=== PATIENT | female | born 1990 | race Hispanic/Latino ===

== ENCOUNTER 2018-01-06 00:02 | Emergency (ER) | payer BC ==
[~2018-01-06] VITALS: Ht 157.5 cm; Wt 118.4 kg
== END 2018-01-06 02:03 | disposition home or self-care (01) ==
LOC: ER 00:02
DX: H92.01 Otalgia, right ear (principal); J02.9 Acute pharyngitis, unspecified
CPT/HCPCS: 83518; 87070; 99282

== ENCOUNTER 2020-10-07 00:11 | Emergency (ER) | payer BC ==
[~2020-10-07] VITALS: Ht 157.5 cm; Wt 111.1 kg
[2020-10-07] MEDS ORDERED: IBUPROFEN IB200 MG PO (00:45)
[2020-10-07] MEDS ORDERED: ACETAMINOPHEN500 MG PO (00:45)
[2020-10-07] MEDS ORDERED: GABAPENTIN300 MG PO (00:45)
[2020-10-07] MEDS ORDERED: ULTRAM 50MG50 MG PO (00:45)
[2020-10-07] MEDS ORDERED: PREDNISONE 20 MG TAB PO ONE (01:00)
[2020-10-07] MEDS ORDERED: HYDROCODONE/APAP 5MG-325MG TAB PO ONE (01:00)
[2020-10-07] MEDS ORDERED: ONDANSETRON HCL 4 MG ORAL DISINTEGRATING TAB PO ONE (01:00)
[2020-10-07] MEDS ORDERED: KETOROLAC TROMETHAMINE 60 MG/2 ML VIAL IM ONE (01:00)
[2020-10-07] MEDS ORDERED: PREDNISONE 20 MG TAB ONE ×2 (01:10→01:17)
[2020-10-07] MEDS ORDERED: ONDANSETRON HCL 4 MG ORAL DISINTEGRATING TAB ONE (01:10)
[2020-10-07] MEDS ORDERED: KETOROLAC TROMETHAMINE 60 MG/2 ML VIAL ONE (01:11)
[2020-10-07] MEDS ORDERED: HYDROCODONE/APAP 5MG-325MG TAB ONE (01:11)
== END 2020-10-07 01:40 | disposition home or self-care (01) ==
LOC: FSED 00:20 → MERGE 00:20 → FSED 01:40
DX: R10.31 Right lower quadrant pain (principal); M79.651 Pain in right thigh; S74.11XA Injury of femoral nerve at hip and thigh level, right leg, initial encounter; G62.9 Polyneuropathy, unspecified; X50.1XXA Overexertion from prolonged static or awkward postures, initial encounter
CPT/HCPCS: 99282; J1885; J7512; Q0162

== ENCOUNTER 2022-11-07 10:53 | Emergency (ER) | payer BC, MEDICAID ==
[~2022-11-07] VITALS: Ht 157.5 cm; Wt 106.6 kg
[~2022-11-07 10:53] MED LIST: ACETAMINOPHEN500 MG PO; GABAPENTIN300 MG PO; IBUPROFEN IB200 MG PO; ULTRAM 50MG50 MG PO
[2022-11-07] MEDS ORDERED: IBUPROFEN200 MG PO (12:32)
[2022-11-07] MEDS ORDERED: ACETAMINOPHEN500 MG PO (12:32)
== END 2022-11-07 12:47 | disposition home or self-care (01) ==
LOC: FSED 10:56
DX: M25.551 Pain in right hip (principal); G58.8 Other specified mononeuropathies; G62.9 Polyneuropathy, unspecified
CPT/HCPCS: 72192; 81003; 81025; 99283

== ENCOUNTER 2023-02-10 14:26 | Emergency (ER) | payer BC, MEDICARE ==
[~2023-02-10] VITALS: Ht 160 cm; Wt 102.5 kg
[~2023-02-10 14:26] MED LIST changes: +IBUPROFEN200 MG PO
[2023-02-10 14:30] VITALS: O2SAT 98
[2023-02-10] MEDS ORDERED: SODIUM CHLORIDE 0.9% 1000ML 1,000 ML IV ONE (14:45)
[2023-02-10] MEDS ORDERED: LIDOCAINE HCL 2% LOCAL 20 ML VIAL INJ ONE (15:00)
[2023-02-10] MEDS ORDERED: ATORVASTATIN CA20 MG PO (15:05)
[2023-02-10] MEDS ORDERED: KEPPRA750 MG PO (15:05)
[2023-02-10] MEDS ORDERED: PREDNISONE20 MG PO (15:05)
[2023-02-10] MEDS ORDERED: ONDANSETRON ODT4 MG PO (15:05)
[2023-02-10] MEDS ORDERED: CLOPIDOGREL75 MG PO (15:05)
[2023-02-10] MEDS ORDERED: ASPIRIN325 MG PO (15:05)
[2023-02-10] MEDS ORDERED: VITAMIN B-121000 MCG PO (15:05)
[2023-02-10] MEDS ORDERED: VERAPAMIL ER120 MG PO (15:05)
[2023-02-10] MEDS ORDERED: PROTONIX20 MG PO (15:05)
== END 2023-02-10 14:50 | disposition left against medical advice (07) ==
LOC: FSED 14:29
DX: L02.411 Cutaneous abscess of right axilla (principal); H53.8 Other visual disturbances; I10 Essential (primary) hypertension; E11.8 Type 2 diabetes mellitus with unspecified complications; Z86.73 Personal history of transient ischemic attack (TIA), and cerebral infarction without residual deficits

== ENCOUNTER 2023-12-31 18:36 | Emergency (ER) | payer BC ==
[~2023-12-31] VITALS: Ht 160 cm; Wt 74.8 kg
[~2023-12-31 18:36] MED LIST changes: +ASPIRIN325 MG PO; +ATORVASTATIN CA20 MG PO; +CLOPIDOGREL75 MG PO; +KEPPRA750 MG PO; +ONDANSETRON ODT4 MG PO; +PREDNISONE20 MG PO; +PROTONIX20 MG PO; +VERAPAMIL ER120 MG PO; +VITAMIN B-121000 MCG PO
[2023-12-31] MEDS ORDERED: CEPHALEXIN500 MG PO (18:59)
[2023-12-31 20:29] VITALS: BP 141/86; PULSE 86; RESP 18; TEMP 97.6; O2SAT 98
== END 2023-12-31 20:33 | disposition home or self-care (01) ==
LOC: FSED 19:32
DX: S31.114A Laceration without foreign body of abdominal wall, left lower quadrant without penetration into peritoneal cavity, initial encounter (principal); W22.8XXA Striking against or struck by other objects, initial encounter; Y92.89 Other specified places as the place of occurrence of the external cause; I10 Essential (primary) hypertension; E11.9 Type 2 diabetes mellitus without complications; E78.5 Hyperlipidemia, unspecified; G40.909 Epilepsy, unspecified, not intractable, without status epilepticus; K21.9 Gastro-esophageal reflux disease without esophagitis; Z86.73 Personal history of transient ischemic attack (TIA), and cerebral infarction without residual deficits
CPT/HCPCS: 99283

== ENCOUNTER 2025-05-07 18:35 | Emergency (ER) | payer BC ==
[~2025-05-07] VITALS: Ht 160 cm; Wt 98.0 kg
[~2025-05-07 18:35] MED LIST changes: +ASPIRIN EC81 MG PO; +CEPHALEXIN500 MG PO; +METFORMIN HCL500 M2 PO; +MULTI-VITAMIN1 EACH PO; +POLYMYXIN B-TMP10 ML OU
[2025-05-07 20:00] VITALS: TEMP 97.9
[2025-05-07 20:01] VITALS: PULSE 86; RESP 18
[2025-05-07] MEDS: FAMOTIDINE 20 MG/2 ML VIAL IV STA (20:27)
[2025-05-07] MEDS: SODIUM CHLORIDE 0.9% 1000ML 1,000 ML IV ONE (20:27)
[2025-05-07] MEDS: ONDANSETRON HCL INJ 2MG/ML 2ML 2 MG/ML VIAL IV STA (20:27)
[2025-05-07] MEDS ORDERED: PEPCID20 MG PO (21:47)
[2025-05-07 22:04] VITALS: BP 130/90; PULSE 84; RESP 18; TEMP 98; O2SAT 99
== END 2025-05-07 22:04 | disposition home or self-care (01) ==
LOC: FSED 18:56
DX: R10.30 Lower abdominal pain, unspecified (principal); G89.29 Other chronic pain; N20.0 Calculus of kidney; R11.2 Nausea with vomiting, unspecified; R19.7 Diarrhea, unspecified; M48.54XA Collapsed vertebra, not elsewhere classified, thoracic region, initial encounter for fracture; M48.56XA Collapsed vertebra, not elsewhere classified, lumbar region, initial encounter for fracture; D64.9 Anemia, unspecified; I10 Essential (primary) hypertension; E11.9 Type 2 diabetes mellitus without complications; G40.909 Epilepsy, unspecified, not intractable, without status epilepticus; E78.5 Hyperlipidemia, unspecified; F41.9 Anxiety disorder, unspecified; I67.5 Moyamoya disease; I69.354 Hemiplegia and hemiparesis following cerebral infarction affecting left non-dominant side
CPT/HCPCS: 74176; 80053; 81003; 81025; 85025; 99284; J1308; J2405; J7030